=== PATIENT | female | born 1995 | race African-American/Black ===

== ENCOUNTER 2021-03-13 19:08 | Emergency (ER) | payer MEDICAID ==
[~2021-03-13] VITALS: Ht 167.6 cm; Wt 127.0 kg
[2021-03-13 19:13] VITALS: Ht 167.6 cm; Wt 127.0 kg
[2021-03-13 19:35] LABS: BASOPHILS 0.5 % (0-2); EOSINOPHILS 0.3 % (0-7); HEMATOCRIT 38.3 % (36.0-48.0); HEMOGLOBIN 12.2 g/dL (12-16); IMMATURE GRANULOCYTES 0.3 % (0-5); LYMPHOCYTE ABS# 2.59 10x3/uL (1.18-3.74); LYMPHOCYTES 17.6 % (15-50); MCH 22.5 pg (26.0-34.0); MCHC 31.9 g/dL (31.0-37.0); MCV 70.7 fL (80.0-100.0); MEAN PLATELET VOLUME 9.5 fL (7.4-10.4); MONOCYTES 11.3 % (2-11); NEUTROPHIL ABS# 10.32 10x3/uL (1.56-6.13); PLATELET COUNT 654 10x3/uL (130-400); RBC 5.42 10x6/uL (4.00-5.40); RDW 18.6 % (11.5-14.5); WBC 14.8 10x3/uL (4.8-10.8)
[2021-03-13 19:44] LABS: BILIRUBIN NEGATIVE (NEGATIVE); KETONE NEGATIVE (NEGATIVE); NITRITE NEGATIVE (NEGATIVE); UROBILINOGEN NORMAL mg/dL (< 2)
[2021-03-13 19:45] LABS: ANION GAP 18.2 mmol/L (8-16); BACTERIA MANY HPF (NONE SEEN); CALCIUM 10.3 mg/dL (8.5-10.1); CREATININE - SERUM 1.7 mg/dL (0.6-1.3); POTASSIUM - SERUM 4.2 mmol/L (3.5-5.1); SQUAMOUS EPITHELIAL OCC HPF (0-4); WHITE CELLS - URINE 0-5 HPF (0-4)
[2021-03-13 19:51] LABS: BILIRUBIN - TOTAL 0.81 mg/dL (0.2-1.3); PROTEIN - SERUM 9.4 g/dL (6.4-8.2)
[2021-03-13 19:57] LABS: HCG URINE NEGATIVE (NEGATIVE)
[2021-03-13] MEDS ORDERED: CEPHALEXIN500 M1 PO (20:44)
[2021-03-13] MEDS ORDERED: MACROBID100 MG PO (20:44)
[2021-03-13] MEDS ORDERED: ZOFRAN ODT4 MG/UDTAB PO (20:44)
[2021-03-13 21:30] VITALS: BP 125/87
[2021-03-15 10:12] LABS: HEPATITIS C ANTIBODY <0.1 S/CO RAT (0.0-0.9)
== END 2021-03-13 21:31 | disposition home or self-care (01) ==
LOC: D.ER 19:08
PROVIDERS: Family Medicine
DX: R10.9 Unspecified abdominal pain (principal); R11.2 Nausea with vomiting, unspecified; N39.0 Urinary tract infection, site not specified; R74.8 Abnormal levels of other serum enzymes